=== PATIENT | female | born 1995 | race Caucasian/White ===

== ENCOUNTER → 2016-07-24 | Outpatient (CLI) | payer OTHER | END | disposition home or self-care (01) | LOC: C.PAPS 10:49 | PROVIDERS: ATTEND Physician Assistant | DX: Z12.4 Encounter for screening for malignant neoplasm of cervix (principal) ==

== ENCOUNTER → 2017-02-05 | Outpatient (CLI) | payer OTHER ==
[2017-02-05 12:53] LABS: PREG INTERNAL NEGATIVE QC NEG CLEAR BACKGROUND; PREG INTERNAL POSITIVE QC POS CONTROL LINE
[2017-02-05 13:16] LABS: PROLACTIN 11.57 ng/mL
== END | disposition home or self-care (01) ==
LOC: C.LAB1850 11:07
PROVIDERS: ATTEND Physician Assistant
DX: N91.2 Amenorrhea, unspecified (principal)

== ENCOUNTER → 2017-05-09 | Outpatient (CLI) | payer OTHER | LOC: C.LABSPEC 17:46 | PROVIDERS: ATTEND Physician Assistant | DX: N89.8 Other specified noninflammatory disorders of vagina (principal) ==